=== PATIENT | female | born 1970 | race Caucasian/White ===

== ENCOUNTER 2018-11-25 08:16 | Outpatient (CLI) | payer BC ==
--- NOTE | 2018-11-25 11:08 | MRI ---
CERVICAL SPINE MRI NONCONTRAST: Date: 11/25/18 CLINICAL INDICATION: Foraminal stenosis of cervical region. Reference made to 03/09/18 MRI exam of cervical spine. FINDINGS: There is mild degenerative hypertrophy at the C1-2 level. C2-3: There is a mild disc osteophyte complex effacing the ventral thecal sac without significant ce ntral canal or foraminal stenosis. C3-4: No significant central canal or neural foraminal compromise. C4-5: There is mild left uncinate process hypertrophy with minimal left foraminal narrowing when com bined with mild facet degeneration. No significant right foraminal stenosis. C5-6: There is mild left foraminal narrowing due to uncinate process and facet hypertrophy. Slight e ffacement of the ventral thecal sac as a result of mild disc osteophyte complex. No high grade right foraminal stenosis. C6-7: There is a minimal disc osteophyte complex without significant central canal or right foramina l stenosis. There is minimal left neural foraminal narrowing due to uncinate process hypertrophy. C7-T1: No high grade central canal or neural foraminal stenosis. Evaluation of cervical spinal cord reveals appropriate caliber, contour, and signal intensity. IMPRESSION: Mild degenerative changes of the cervical spine. POS: [facility]
--- NOTE | 2018-11-25 11:25 | MRI ---
MRI LUMBAR SPINE WITHOUT CONTRAST: Date: 11/25/18 HISTORY: Lumbar foraminal stenosis. Low back pain with left hip and leg radiation. COMPARISON: 11/02/15. FINDINGS: Appropriate T1 marrow signal intensity of the lumbar vertebra. Lumbar spine vertebral body height is maintained. There is no fracture. No malalignment. No significant STIR hyperintensity to suggest vert ebral body edema or ligamentous injury. There is nonspecific edema in midline subcutaneous fat. There are T2 hyperintensities of the left and right hemipelvis likely representing bilateral ovarian cysts and follicles. Appropriate signal intensity of the visualized solid organs. Symmetric signal in tensity of the paraspinal muscles. Conus medullaris terminates at the mid T12 level. T12-L1: Adequate disc hydration. No significant central canal stenosis or foraminal narrowing. L1-L2: Adequate disc hydration. No significant central canal stenosis or foraminal narrowing. L2-L3: Adequate disc hydration. No significant central canal stenosis. Mild ligamentum flavum thicke milton and facet hypertrophy. Right neural foramen is patent. Mild left foraminal narrowing. L3-L4: Adequate disc hydration. Minimal loss of disc space height. Minimal generalized disc bulge, l igamentum flavum thickening, and facet hypertrophy result in minimal central canal stenosis. Right ne ural foramen is mildly narrowed. Mild to slightly moderate narrowing of the left neural foramen. L4-L5: Disc space height is preserved. There is generalized disc bulge, ligamentum flavum thickening , and facet hypertrophy that result in mild central canal stenosis. Moderate bilateral neural foramin al narrowing. L5-S1: Adequate disc hydration. There is bilateral facet hypertrophy. No significant central canal s tenosis. Mild to moderate right and mild left foraminal narrowing. IMPRESSION: 1. Degenerative changes of the lumbar spine as above. There is no high grade central canal stenosis or high grade foraminal narrowing. Varying degrees of foraminal stenosis and central canal stenosis a s defined above. 2. T2 hyperintensities involving the left and right adnexa which are presumed to be due to bilateral ovarian cysts and follicles. [employer] consultation is recommended. 3. When compared to the previous examination, no significant interval change. CODE T. POS: [facility]
== END 2018-11-25 08:17 | disposition home or self-care (01) ==
LOC: BICMRI 08:16
PROVIDERS: ATTEND Nurse Practitioner Family
DX: M48.02 Spinal stenosis, cervical region (principal); M48.061 Spinal stenosis, lumbar region without neurogenic claudication; M47.816 Spondylosis without myelopathy or radiculopathy, lumbar region; M47.812 Spondylosis without myelopathy or radiculopathy, cervical region
CPT/HCPCS: 72141; 72148

== ENCOUNTER 2018-12-02 13:36 | Outpatient (CLI) | payer BC ==
--- NOTE | 2018-12-02 14:56 | RAD ---
LEFT HIP 2 VIEWS: HISTORY: Hip pain. FINDINGS: There is prominent osteophytic lipping of the lateral margin of the acetabulum, also ossification whi ch could be related to an old injury to the reflected head of the biceps femoris tendon. There is al so some minimal osteoarthritic change of the femoral head and neck junction. No significant joint sp yuni narrowing. IMPRESSION: Mild arthritic changes of the left hip. No significant joint space narrowing. POS: [facility]
--- NOTE | 2018-12-02 14:58 | RAD ---
RIGHT HIP 2 VIEWS: HISTORY: M54.2, cervicalgia, low back pain and bilateral hip pain for 1 year. FINDINGS: Fairly marked enthesophytic changes involving the r lateral acetabular region, greater and lesser tro chanters, and right iliac bone. No acute fracture or dislocation. IMPRESSION: Degenerative and osteoarthrosis changes without fracture or dislocation. POS: [facility]
== END 2018-12-02 13:37 | disposition home or self-care (01) ==
LOC: TBSIIMAG 13:36
PROVIDERS: ATTEND Neurological Surgery
DX: M54.2 Cervicalgia (principal); M16.0 Bilateral primary osteoarthritis of hip

== ENCOUNTER 2019-03-28 11:07 | Outpatient (CLI) | payer BC ==
--- NOTE | 2019-03-28 14:09 | ULT ---
HEPATIC ULTRASOUND WITH DUPLEX EVALUATION: Date: 03/28/19 INDICATION: History of fatty liver. COMPARISON: None. TECHNIQUE: James scale, color Doppler, and spectral Doppler images were obtained of the right upper quadrant and hepatic spleen. Vascular interrogation was made of the hepatic vasculature. FINDINGS: There is diffuse fatty infiltration of the liver. The liver is slightly enlarged, measures 16.7 cm in its greatest longitudinal dimension. The gallbladder is surgically absent. Visualized pancreas is unremarkable appearing. Spleen measures 9.5 cm. Common bile duct measures 4.6 mm. Appropriate hepatopetal flow is seen within the portal vein, intrahepatic portal veins, splenic vein, and hepatic artery. Appropriate flow is seen within the hepatic veins and splenic artery. IMPRESSION: 1. Prominent fatty infiltration of the liver. 2. Appropriate hepatopetal flow within the hepatic vasculature. 3. Cholecystectomy. POS: [facility]
== END 2019-03-28 11:08 | disposition home or self-care (01) ==
LOC: SCSULT 11:07
PROVIDERS: ATTEND Internal Medicine Gastroenterology
DX: K52.9 Noninfective gastroenteritis and colitis, unspecified (principal); K21.9 Gastro-esophageal reflux disease without esophagitis; K76.0 Fatty (change of) liver, not elsewhere classified; R94.5 Abnormal results of liver function studies; E66.9 Obesity, unspecified; Z86.010 Personal history of colon polyps; Z90.49 Acquired absence of other specified parts of digestive tract
CPT/HCPCS: 76705

== ENCOUNTER 2019-09-06 08:43 | Outpatient (CLI) | payer BC ==
--- NOTE | 2019-09-06 11:36 | MRI ---
MRI RIGHT UPPER EXTREMITY JOINT WITHOUT CONTRAST: History: M25.511, right shoulder pain. COMPARISON: None. FINDINGS: Biceps tendon: Moderate intra-articular tendinosis and interstitial tearing. Labrum: Free edge fraying superior labrum without displaced tear. Cartilage: Asymmetric 50-60% cartilage wear of the posterior one half glenoid. Rotator cuff: Moderate bursal surface fraying supraspinous and infraspinatus tendons with 20-30% burs al surface partial tear anterior 1 cm fibers at the footprint. Mild interstitial delamination of the footprint. Moderate tendinosis subscapularis. Bones: Moderate degenerative disease acromioclavicular joint. Undersurface healed osteophyte of the a cromion. Normal glenoid version. Soft tissues: Small-moderate subacromial/subdeltoid bursa effusion. Low-grade fibrosis of the rotator interval. Muscles: The muscle bulk is normal. IMPRESSION: 1. Type III acromion narrowing the subacromial space with moderate reactive subacromial/subdeltoid bu rsa effusion along with anterior supraspinatus, 20-30% bursal surface tear at the footprint as well as fraying throughout the supraspinatus and infraspinatus tendons. 2. Asymmetric 50-60% cartilage wear of the posterior one half glenoid. 3. Mild free edge fraying superiorly without displaced tear. 4. Moderate intra-articular tendinosis and interstitial tearing of the biceps tendon. Transcribed Date/Time: 09/06/2019 12:30 PM
== END 2019-09-06 08:44 | disposition home or self-care (01) ==
LOC: BICMRI 08:43
PROVIDERS: ATTEND Orthopaedic Surgery
DX: M25.511 Pain in right shoulder (principal); M25.411 Effusion, right shoulder; M25.811 Other specified joint disorders, right shoulder; S46.811A Strain of other muscles, fascia and tendons at shoulder and upper arm level, right arm, initial encounter

== ENCOUNTER 2021-11-04 10:42 | Outpatient (CLI) | payer BC ==
[2021-11-04 12:11] LABS: #Eosinphils 0.1 10x3/uL (0.0-0.5); #Monocytes 0.4 10x3/uL (0.0-1.1); %Basophils 0.1 % (0.0-2.0); %Eosinophils 1.5 % (0.0-6.0); %Lymphocytes 35.1 % (18.0-47.0); %Monocytes 5.4 % (0.0-10.0); %Neutrophils 57.8 % (40.0-75.0); Mean Corpuscular HGB CONC 31.8 g/dL (32.0-36.0); Mean Corpuscular Hemoglobin 29.5 pg (27.0-33.0); Mean Corpuscular Volume 92.8 fl (81.6-98.3); Mean Platelet Volume 10.4 fl (7.4-10.4); Platelet Count 306 10x3/uL (150-450); RBC Distribution Width 11.8 % (11.5-14.5); Red Blood Cell (RBC) Count 4.74 10x6/uL (3.90-5.03); White Blood Cell (WBC) Count 6.9 10x3/uL (3.5-10.5)
[2021-11-04 12:30] LABS: Anion Gap 14 mmol/L (10-20); BUN (Urea Nitrogen) 15 mg/dL (9.8-20.1); Calc. Creatinine Clearance 0 mL/min (70-130); Calcium 9.2 mg/dL (7.8-10.44); Carbon Dioxide 25 mmol/L (22-29); Chloride 107 mmol/L (98-107); Glucose 112 mg/dL (70-105); Potassium 3.9 mmol/L (3.5-5.1); Sodium 142 mmol/L (136-145)
[2021-11-04 20:45] LABS: SARS-CoV-2 PCR by NAA Not Detected (NotDetected)
== END 2021-11-04 10:43 | disposition home or self-care (01) ==
LOC: LABBT 10:42
PROVIDERS: ATTEND Orthopaedic Surgery
DX: Z01.818 Encounter for other preprocedural examination (principal); M19.011 Primary osteoarthritis, right shoulder; Z20.822 Contact with and (suspected) exposure to COVID-19
CPT/HCPCS: 80048; 85025; 93005; 93010; U0003; U0005

== ENCOUNTER 2021-11-07 07:15 | Observation (INO) | payer BC ==
[2021-10-29 12:55] VITALS: BMI 39.9
[2021-11-07] MEDS ORDERED: Sodium Chloride 0.9% 100 ML ONE (08:05)
[2021-11-07] MEDS ORDERED: Tranexamic Acid 1,000 MG/10 ML VIAL ONE (08:05)
[2021-11-07] MEDS ORDERED: Vancomycin HCl 1.5 GM in Sodium Chloride 0.9% 250 ML 300 ML IVPB SCH (08:15)
[2021-11-07] MEDS ORDERED: Fentanyl 100 MCG/2 ML VIAL ONE ×3 (08:17→14:05)
[2021-11-07] MEDS ORDERED: Midazolam HCl 2 mg/ml Syrup 5 ml UD Cup ONE (08:17)
[2021-11-07] MEDS ORDERED: Midazolam HCl 2 mg/2 ml Vial ONE (08:17)
[2021-11-07] MEDS ORDERED: Fentanyl 100 MCG/2 ML VIAL IV PRN (09:03)
[2021-11-07] MEDS ORDERED: Zolpidem Tartrate 5 MG TAB PO PRN (09:15)
[2021-11-07] MEDS ORDERED: Ondansetron PF 4 MG/2 ML Vial IVP PRN (09:15)
[2021-11-07] MEDS ORDERED: HYDROcodone/Acetaminophen 10/325 mg Tablet PO PRN (09:15)
[2021-11-07] MEDS ORDERED: Promethazine HCl 25 MG/ML VIAL IM PRN ×2 (09:15→11:43)
[2021-11-07] MEDS ORDERED: traMADol HCl 50 MG TAB PO PRN ×3 (09:15→09:26)
[2021-11-07] MEDS ORDERED: Ropivacaine 0.2% 550 ML 550 ML NERVE BLCK SCH (09:15)
[2021-11-07] MEDS ORDERED: tiZANidine HCl 4 MG TAB PO PRN (09:26)
[2021-11-07] MEDS ORDERED: ceFAZolin 2 GM/Dextrose 50 ML IVPB ONE (09:44)
[2021-11-07] MEDS ORDERED: ePHEDrine 50 MG/ML VIAL ONE (09:57)
[2021-11-07] MEDS ORDERED: Lidocaine 1% PF 5 ML VIAL ONE (09:57)
[2021-11-07] MEDS ORDERED: Rocuronium Bromide 10 MG/ML (10ML VIAL) ONE (09:57)
[2021-11-07] MEDS ORDERED: Ondansetron PF 4 MG/2 ML Vial ONE (09:57)
[2021-11-07] MEDS ORDERED: Ropivacaine 0.5% HCl/PF (150 MG/30 ML VIAL) ONE (09:57)
[2021-11-07] MEDS ORDERED: PROPOFOL 200 MG/20 ML VIAL ONE (09:57)
[2021-11-07] MEDS ORDERED: Dexamethasone 20 MG/5 ML VIAL ONE (09:57)
[2021-11-07] MEDS ORDERED: PHENYLEPHRINE-NS 100 MCG/ML 10 ML SYRINGE ONE (09:57)
[2021-11-07] MEDS ORDERED: SUGAMMADEX SODIUM 200 MG/2 ML VIAL ONE (11:26)
[2021-11-07] MEDS ORDERED: Meperidine HCl/PF 25 MG/ML VIAL SLOW IVP PRN (11:43)
[2021-11-07] MEDS ORDERED: Promethazine HCl 25 MG/ML VIAL IVPB PRN (11:43)
[2021-11-07] MEDS ORDERED: HYDROmorphone 2 MG/ML VIAL SLOW IVP PRN (11:43)
[2021-11-07] MEDS ORDERED: Ketorolac Tromethamine 30 MG/ML VIAL IVP PRN (11:43)
[2021-11-07] MEDS ORDERED: Ondansetron HCl/PF 4 MG/2 ML Vial IVP PRN (11:43)
[2021-11-07] MEDS ORDERED: Ketorolac Tromethamine 30 MG/ML VIAL ONE (12:12)
[2021-11-07] MEDS: Ketorolac Tromethamine 30 MG/ML VIAL IVP SCH ×2 (15:15→18:09)
[2021-11-07] MEDS: Lactated Ringer's 1,000 ML IV SCH (15:15)
[2021-11-07] MEDS: HYDROcodone/Acetaminophen 10/325 mg Tablet PO PRN ×2 (16:21→20:35)
[2021-11-07] MEDS ORDERED: ceFAZolin 2 GM/Dextrose 50 ML 2 GM in Premix Bag 1 BAG IVPB SCH (18:00)
[2021-11-07] MEDS: CEFAZOLIN 2 GM, Admixture Fee 1 EACH in Sodium Chloride 0.9% 100 ML IVPB SCH (18:09)
[2021-11-07] MEDS ORDERED: Labetalol HCl 100 MG/20 ML VIAL SLOW IVP SCH (19:00)
[2021-11-07] MEDS: Famotidine/PF 20 mg/2ml Vial SLOW IVP SCH (20:35)
[2021-11-07] MEDS: Aspirin 81 mg Enteric Coated Tablet PO SCH (20:36)
[2021-11-07] MEDS: Pregabalin 75 MG CAP PO SCH (20:36)
[2021-11-07] MEDS ORDERED: Zolpidem Tartrate 5 MG TAB PO SCH (21:00)
[2021-11-08] MEDS: CEFAZOLIN 2 GM, Admixture Fee 1 EACH in Sodium Chloride 0.9% 100 ML IVPB SCH (00:56)
[2021-11-08] MEDS: HYDROcodone/Acetaminophen 10/325 mg Tablet PO PRN ×4 (00:56→12:44)
[2021-11-08] MEDS: Ketorolac Tromethamine 30 MG/ML VIAL IVP SCH ×3 (00:57→11:09)
[2021-11-08] MEDS: Lactated Ringer's 1,000 ML IV SCH (03:31)
[2021-11-08] MEDS: Aspirin 81 mg Enteric Coated Tablet PO SCH (08:39)
[2021-11-08] MEDS: Pregabalin 75 MG CAP PO SCH (08:40)
[2021-11-08] MEDS: Famotidine/PF 20 mg/2ml Vial SLOW IVP SCH (08:41)
[2021-11-08] MEDS ORDERED: Metoprolol Tartrate 50 MG TAB PO SCH (09:00)
[2021-11-08] MEDS ORDERED: DULoxetine 60 MG CAP PO SCH (09:00)
[2021-11-08] MEDS ORDERED: Lisinopril 20 MG TAB PO SCH (09:00)
[2021-11-08] MEDS ORDERED: Amlodipine 5 MG TAB PO SCH (09:00)
[2021-11-08 12:34] VITALS: BP 129/85; TEMP 97.9
== END 2021-11-08 13:45 | disposition home or self-care (01) ==
LOC: SDC 07:15 → SURG A 09:24
PROVIDERS: ADMIT Orthopaedic Surgery; ATTEND Orthopaedic Surgery
PROC: 0RRJ00Z Replacement of Right Shoulder Joint with Reverse Ball and Socket Synthetic Substitute, Open Approach (ICD-10-PCS; principal; 2021-11-07)
PROC: 3E0T3BZ Introduction of Anesthetic Agent into Peripheral Nerves and Plexi, Percutaneous Approach (ICD-10-PCS; 2021-11-07)
DX: M19.011 Primary osteoarthritis, right shoulder (principal); M75.111 Incomplete rotator cuff tear or rupture of right shoulder, not specified as traumatic; S46.219A Strain of muscle, fascia and tendon of other parts of biceps, unspecified arm, initial encounter; J45.20 Mild intermittent asthma, uncomplicated; R73.03 Prediabetes; K21.9 Gastro-esophageal reflux disease without esophagitis; M06.9 Rheumatoid arthritis, unspecified; I10 Essential (primary) hypertension; G47.30 Sleep apnea, unspecified; E66.9 Obesity, unspecified; Z68.39 Body mass index [BMI] 39.0-39.9, adult; Z87.891 Personal history of nicotine dependence; Z79.899 Other long term (current) drug therapy; Z88.2 Allergy status to sulfonamides
CPT/HCPCS: 94640; 96365; 96375; 96376; A4306; C1713; C1776; G0378; J0690; J1100; J1885; J2250; J2405; J2704; J2795; J3010; J3370; J3490; J7050; J7620; S0028